=== PATIENT | female | born 1990 | race Caucasian/White ===

== ENCOUNTER 2017-07-24 09:33 | Emergency (ER) | payer SELFPAY ==
[2017-07-24 09:35] VITALS: BP 103/67; PULSE 98; RESP 20; TEMP 36.5; O2SAT 98; BMI 39.4
[2017-07-24] MEDS: Orphenadrine 60 MG/2 ML Ampul IM (10:00)
[2017-07-24] MEDS: Ketorolac 60 MG/2 ML Vial IM (10:01)
--- NOTE | 2017-07-24 10:07 | ED.DCSUM_ITS ---
- ER Visit Summary Date of Service: 07/24/17 Chief Complaint: Back pain History of Present Illness: The patient is a 26 F who presents with back pain that began yesterday. Patient states she has a history of intermittent back pain. Patient states she stood up from a seated position when she felt pain in her low back. Patient states the pain radiates down her left leg. Patient denies any bowel or bladder changes. Patient denies any saddle anesthesia. Patient states her pain is worse with any movement. Patient denies any recent trauma or injury. Physical Examination: Vital signs are stable. Patient is afebrile. Patient is in no acute distress. Musculoskeletal exam reveals tenderness and spasm over the lumbar paraspinal muscles. There is mild midline tenderness. There is no edema or ecchymosis noted. There is no bony crepitance or step-off. Range of motion was limited in all motions of the lumbar spine secondary to pain. Strength is 5/5 bilaterally. There are no sensory deficits noted. Deep tendon reflexes were 2+/4 bilaterally. Emergency Department Course and Treatment: Patient was given injections of Toradol and Norflex here. Patient had minimal relief with this. Patient was given an injection of morphine. Patient felt better after this. Patient was instructed to go home and rest. Patient was instructed to follow-up with her primary care physician in 7-10 days. Patient was given prescriptions for Naprosyn and Flexeril. Patient was given a note for work for tomorrow. Patient understood and was agreeable with the plan. All questions were answered. Disposition: Discharge home Impression: Acute low back pain This note was generated with [employer] dictation software. It may contain incorrect words, spelling, and punctuation that were not noted in review of the chart prior to signing ED Disposition - Plan for ED Patient: Disposition: Home or Assisted Living Chief Complaint: Back Diagnosis: Acute low back pain with right-sided sciatica Instructions: ED Spasm Back No Trauma Prescriptions: Cyclobenzaprine [Flexeril] 10 mg PO TID PRN PRN #20 tab PRN Reason: Muscle Spasm Naproxen [Naprosyn] 500 mg PO BID PRN PRN #20 tab PRN Reason: Pain Referrals: Johnson Wisdom MD [Primary Care Provider] -
[2017-07-24 10:47] VITALS: BP 129/74; PULSE 81; RESP 16; O2SAT 100
[2017-07-24] MEDS: morphine 10 MG/ML Syringe 4 MG SC (11:19)
[2017-07-24 12:14] VITALS: BP 119/61; PULSE 73; RESP 16; O2SAT 98
--- NOTE | 2017-07-24 12:14 | ED.RN ---
THIS NURSE REVIEWED D/C INSTRUCTIONS WITH PT. PT VERBALIZED UNDERSTANDING OF INSTRUCTIONS. PT DENIES FURTHER NEEDS OR QUESTIONS AT THIS TIME.
== END 2017-07-24 12:15 | disposition home or self-care (01) ==
PROVIDERS: Emergency Provider Emergency Medicine; Family Provider Family Medicine; PCP Family Medicine
DX: M54.5 Low back pain (principal)
CPT/HCPCS: 99282

== ENCOUNTER 2017-09-19 12:12 | Emergency (ER) | payer SELFPAY ==
[2017-09-19 12:13] VITALS: BP 146/79; PULSE 86; RESP 15; TEMP 36.7; O2SAT 98; BMI 41.1
--- NOTE | 2017-09-19 12:16 | RAD_ITS ---
STUDY: X-RAY - LEFT FOOT CLINICAL: Female, 27 years old. Puncture wound. TECHNIQUE: 3 view(s) of the foot. COMPARISON: None. FINDINGS: Normal talus, calcaneus, and tarsal bones. Normal visualized subtalar, talonavicular, calcaneocuboid, tarsal and tarsometatarsal articulations. Normal metatarsi. Normal metatarsophalangeal joint of the great toe. Normal tibial and fibular sesamoid bones. Normal interphalangeal joint of the great toe. Normal phalanges of the great toe. Normal second through fifth metatarsophalangeal joints. Normal interphalangeal joints and phalanges of the lesser toes. The soft tissue structures are unremarkable. RAD/Foot min 3 Views IMPRESSION: Normal x-ray examination of the foot. Electronically Signed: Earnest Hilliard MD at 12:43 EDT Tel [phone], Service support ,
--- NOTE | 2017-09-19 14:22 | ED.VIS.GEN ---
History of Present Illness Chief Complaint: Wound Informant: Patient Onset: Days - 2 Context: Gradual Onset Timing: Continuous Quality: sore/throbbing Location: R foot Current Severity: Moderate Maximum Severity: Moderate Worsened by: walking/weight bearing Relieved by: rest/elevation Associated Symptoms: redness, swelling Narrative: Patient states 2 days ago, she was walking in a field and the grass was high, she accidentally stepped on a shard of ceramic piping that was hidden in the grass (patient brought cell phone pictures) that went through her shoe and cut her on the plantar aspect of her right foot. She was seen at the [facility] afterwards, and states that they cleaned it and put some bacitracin on it with a Band-Aid. Now she states it is becoming more painful, swollen, and red, especially on the dorsum of her foot where she did not have an injury. She has no systemic symptoms, but hurts more to walk on now. No fevers. She is not a diabetic. Last tetanus unknown she believes it was more than 10 years ago. Past Medical History - Allergies and Home Meds Allergies/Adverse Reactions: Allergies No Known Allergies Allergy (Verified 09/19/17 12:15) Home Medications: Home Medications Medication Instructions Recorded Clindamycin [Cleocin] 300 mg PO 4X/DAY #80 cap 09/19/17 Levonorgestrel [Mirena] 1 each IY UD 09/19/17 Primary Care Physician: Johnson Wisdom MD [Primary Care Provider] - Past Medical History: None Smoking Status: Never smoker Drugs: None Review of Systems All systems negative except as indicated Musculoskeletal: Reports: Extremity Pain - and swelling with redness right foot Skin: Reports: Wounds - No significant drainage to her knowledge Physical Exam Vital Signs/Narrative: Vital Signs Temp Pulse Resp BP Pulse Ox 09/19/17 12:13 98.1 F 86 15 146/79 H 98 Inital Vital Signs reviewed: Yes General: Well nourished, Well developed, - - Well-appearing in no acute distress. Head: Normocephalic, Atraumatic Extremities: Tenderness - Tenderness with warm erythema on the dorsum of her right forefoot not including the toes. There is a 1 cm or less laceration on the plantar aspect of her right forefoot. There is a piece of gauze on it with a scant amount of serosanguineous drainage, with squeezing this entire area, there is no expressible discharge and the wound is open. Skin: - - See above. Patch of erythema dorsally on the right forefoot, no lymphangitis. None of this extends to the area of the hindfoot or ankle Neurological: Alert, Oriented x3, Cranial nerves II-XII grossly intact, Normal Strength, Normal Sensation Psychological: Normal affect Diagnostic/Tx/Re-eval Impressions Foot X-Ray 09/19/17 12:16 IMPRESSION: Normal x-ray examination of the foot. Electronically Signed: Earnest Hilliard MD at 12:43 EDT Tel [phone], Service support , 09/19/17 12:16 Foot min 3 Views [RAD] Stat Laboratory Results 09/19/17 Range/Units 14:40 WBC 9.7 (4.4-11.0) K/mm3 RBC 4.97 (4.2-5.4) M/mm3 Hgb 14.6 (12.0-15.0) g/dl Hct 44.1 (37-47) % MCV 88.7 (81-99) fL MCH 29.4 (27.0-32.0) pg MCHC 33.1 (32-36) g/gl RDW 12.6 (11.6-14.6) % RDW Differential 40.4 (35.1-43.9) fl Plt Count 241 (150-450) K/mm3 MPV 9.6 (6.2-12.0) fl Immature Gran % (Auto) 0.200 (0.0-0.9) % Neut % (Auto) 63.3 (47-70) % Lymph % (Auto) 27.3 (19-41) % Swisher % (Auto) 6.8 (0-10) % Eos % (Auto) 2.2 (0-5) % Baso % (Auto) 0.2 (0-1) % Absolute Neuts (auto) 6.1 (2.0-7.7) X10^3/uL Absolute Lymphs (auto) 2.64 (0.83-4.51) X10^3/ul Total Counted Not Reportable - Medical Decision Making Concern for infection. Clinically there is no abscess. She is given IV clindamycin, and her tetanus is updated. I think this will be the best antibiotic for this, especially since this area was contaminated with soil. We will soak her foot in shad-cleanse and peroxide. She will be discharged on clindamycin to follow-up closely in the next 2 days for reevaluation, encouraged to return if worsening on antibiotics after 48 hours, or with any significant spreading or fevers before that. ED Disposition - Plan for ED Patient: Disposition: Home or Assisted Living Chief Complaint: Wound Diagnosis: Puncture wound of plantar aspect of right foot with infection Instructions: ED Infec Skin Cellulitis, ED Wound Puncture Foot Prescriptions: Clindamycin [Cleocin] 300 mg PO 4X/DAY #80 cap Referrals: Johnson Wisdom MD [Primary Care Provider] - (2-4 days)
[2017-09-19 14:52] LABS: Absolute Lymphocyte Count 2.64 X10^3/ul (0.83-4.51); Absolute Neutrophil Count 6.1 X10^3/uL (2.0-7.7); Basophil# 0.02 X10^3/uL; Basophil% 0.2 % (0-1); Eosinophil# 0.21 X10^3/uL; Eosinophils% 2.2 % (0-5); Hematocrit 44.1 % (37-47); Hemoglobin 14.6 g/dl (12.0-15.0); Lymphocyte # 2.64 X10^3/ul (4.0); Lymphocyte % 27.3 % (19-41); Mean Corp Hgb Conc 33.1 g/gl (32-36); Mean Corpuscular Hgb 29.4 pg (27.0-32.0); Mean Corpuscular Volume 88.7 fL (81-99); Mean Platelet Vol. 9.6 fl (6.2-12.0); Monocyte# 0.66 X10^3/uL; Monocyte% 6.8 % (0-10); Neutrophil # 6.12 X10^3/uL (2.7-7.7); Neutrophil % 63.3 % (47-70); Platelet Count 241 K/mm3 (150-450); RBC Distribution Width CV 12.6 % (11.6-14.6); RBC Distribution Width SD 40.4 fl (35.1-43.9); Red Blood Count 4.97 M/mm3 (4.2-5.4); White Blood Count 9.7 K/mm3 (4.4-11.0)
[2017-09-19 14:53] LABS: POSITIVE COUNT NO; POSITIVE DIFFERENTIAL NO; POSITIVE MORPHOLOGY NO
[2017-09-19] MEDS: Clindamycin 600 MG/50 ML BAG 100 MG IV (15:16)
[2017-09-19] MEDS: Diphth,Pertuss(Acell),Tet Vac 0.5 ML Vial IM (15:16)
[2017-09-19 16:35] VITALS: BP 119/80; PULSE 91; RESP 14; O2SAT 98
== END 2017-09-19 16:37 | disposition home or self-care (01) ==
PROVIDERS: Emergency Provider Emergency Medicine; Family Provider Family Medicine; PCP Family Medicine
DX: S91.331D Puncture wound without foreign body, right foot, subsequent encounter (principal); L08.9 Local infection of the skin and subcutaneous tissue, unspecified; W22.8XXD Striking against or struck by other objects, subsequent encounter
CPT/HCPCS: 73630; 85025; 90471; 90715; 99283; J7050; A4216

== ENCOUNTER 2019-09-23 09:47 | Emergency (ER) | payer MEDICAID, SELFPAY ==
[2019-09-23 09:47] VITALS: BP 140/96; PULSE 95; RESP 18; TEMP 36.6; O2SAT 98; BMI 41.5
--- NOTE | 2019-09-23 10:07 | CT_ITS ---
STUDY: CT SOFT TISSUE NECK WITH CONTRAST REASON FOR EXAM: Female, 29 years old. PT STATED SWELLING, NUMBNESS TO FACE X 2 DAYS POST ROOT CANAL RADIATION DOSAGE (If Supplied By Facility): CTDIvol = ( 21.14 ) mGy, DLP = ( 570.05 ) mGycm TECHNIQUE: The patient was scanned in a multi-detector CT scanner. High resolution transaxial imaging was performed following intravenous administration of IV 100mL Isovue-300. Sagittal and coronal images were reconstructed. Individualized dose optimization techniques were used for this CT. COMPARISON: None. FINDINGS: Normal bilateral parotid glands. Normal bilateral organizational research consultant spaces. Normal bilateral parapharyngeal spaces. Normal bilateral carotid spaces. Normal bilateral sublingual and submandibular glands and spaces. Normal visualized nasopharynx. Normal retropharyngeal space. Normal perivertebral space. Normal visualized bilateral faucial tonsils. The visualized tongue, tongue base and oropharynx are normal. The visualized cervical lymph nodes (levels I-) are within normal size limits, and maintain normal morphology. There is no demonstrated solid or cystic mass lesion. There is no abnormal contrast enhancement. Normal epiglottis, bilateral vallecula and hypopharynx. The pre-epiglottic and paraglottic adipose spaces are normal. Normal visualized bilateral piriform sinuses, aryepiglottic folds, vocal cords, and arytenoid-cricoid articulations. Normal subglottic trachea. Normal bilateral lobes of the thyroid gland. Normal visualized pulmonary apices. Normal visualized paranasal sinuses. Normal visualized cervical spine. CT/Soft Tissue Neck WITH Contrast IMPRESSION: Normal enhanced CT examination of the soft tissues of the neck. Electronically Signed: Vipul Teague MD at 11:28 EDT Tel , Service support ,
--- NOTE | 2019-09-23 10:10 | ED.DCSUM_ITS ---
- ER Visit Summary Date of Service: 09/23/19 Chief Complaint: Facial pain and swelling History of Present Illness: The patient is a 29 F who presents with dental and facial pain and swelling that is been getting worse over the past 3 days. Patient states she had a root canal done 5 days ago. Patient states she was started on amoxicillin after the root canal. Patient states she was unable to tolerate that which caused her to have some nausea and vomiting. Patient states she has been taking clindamycin since yesterday. Patient states she has taken approximately 6 doses of clindamycin. Patient denies any fevers or chills. Physical Examination: Vital signs are stable. Patient is afebrile. Patient is in no acute distress. Oral mucosa is pink and moist. There is some mild gingival edema over the right upper first and second molar areas. There is no abscess formation. There is no fluctuance. There is no trismus noted. Oropharynx is clear. Airway is patent. Neck is supple. Trachea is midline. There is some mild right anterior cervical lymphadenopathy that is tender to palpation. Heart was regular rate and rhythm. Lungs are clear and equal bilaterally. Abdomen is soft and nontender. Cranial nerves II through XII are intact. There are no focal motor or sensory deficits. Test Results: CBC and comprehensive metabolic profile were within normal limits. Serum hCG was negative. CT scan of the soft tissue neck was obtained. There is no abscess or deep space infection. Emergency Department Course and Treatment: Patient was given a dose of clindamycin IV here. Patient was instructed to continue her clindamycin as prescribed. Patient was instructed to follow-up with her oral surgeon and primary care physician in 5 to 7 days. Patient understood and was agreeable with the plan. All questions were answered. Disposition: Discharge home Impression: Infected dental caries This note was generated with [employer] dictation software. It may contain incorrect words, spelling, and punctuation that were not noted in review of the chart prior to signing ED Disposition - Plan for ED Patient: Disposition: Home or Assisted Living Diagnosis: Infected dental caries Instructions: ED ABSCESS DENTAL Referrals: Johnson Wisdom MD [STAFF PHYSICIAN] - 3-5 Days
[2019-09-23 10:38] LABS: Absolute Lymphocyte Count 2.29 X10^3/uL (0.83-4.51); Absolute Neutrophil Count 3.9 X10^3/uL (2.0-7.7); Basophil# 0.03 X10^3/uL; Basophil% 0.4 % (0-1); Eosinophil# 0.08 X10^3/uL; Eosinophils% 1.2 % (0-5); Hematocrit 45.2 % (37-47); Hemoglobin 15.1 g/dL (12.0-15.0); Lymphocyte # 2.29 X10^3/ul (4.0); Lymphocyte % 33.3 % (19-41); Mean Corp Hgb Conc 33.4 g/dL (32-36); Mean Corpuscular Hgb 29.8 pg (27.0-32.0); Mean Corpuscular Volume 89.2 fL (81-99); Mean Platelet Vol. 9.7 fl (6.2-12.0); Monocyte# 0.51 X10^3/uL; Monocyte% 7.4 % (0-10); NRBC Flagged by Analyzer 0 % (0-5); Neutrophil # 3.93 X10^3/uL (2.7-7.7); Neutrophil % 57.3 % (47-70); Platelet Count 239 K/mm3 (150-450); RBC Distribution Width CV 12.3 % (11.6-14.6); RBC Distribution Width SD 40.1 fl (35.1-43.9); Red Blood Count 5.07 M/mm3 (4.2-5.4); White Blood Count 6.9 K/mm3 (4.4-11.0)
[2019-09-23 10:47] LABS: Internal QC Validated? YES +Cl - CLEAR BKGD; Pregnancy, Serum, hCG Quali. NEGATIVE Negative
[2019-09-23 10:54] LABS: AST(SGOT) 21 U/L (15-37); Alanine Aminotransfer ALT/SGPT 35 U/L (13-56); Albumin, Serum 3.7 g/dL (3.2-5.0); Alkaline Phosphatase 51 U/L (45-117); Anion Gap 6 (5-15); BUN 10 mg/dL (7-18); BUN/Creat Ratio 12.8 RATIO (10-20); Calcium,Total 9.2 mg/dL (8.5-10.1); Chloride 107 mmol/L (98-107); Creatinine, Serum 0.78 mg/dL (0.55-1.02); EST Glomerular Filtration Rate 92 mL/min (>60); Est Glom Filt Rate - Afr Amer 112 mL/min (>60); Globulin 3.6 g/dL (2.2-4.2); Glucose 135 mg/dL (74-106); Protein, Total 7.3 g/dL (6.4-8.2); Sodium Level 140 mmol/L (136-145)
--- NOTE | 2019-09-23 11:16 | ED.RN ---
PT VOMITED DURING THE CT SCAN. THIS NURSE IN TO SPEAK WITH THE PT. FEELING BETTER NOW. NO LONGER NAUSEATED
[2019-09-23 12:42] VITALS: BP 120/75; PULSE 71; RESP 16; O2SAT 98
== END 2019-09-23 12:43 | disposition home or self-care (01) ==
PROVIDERS: Emergency Provider Emergency Medicine; PCP Family Medicine
DX: K04.7 Periapical abscess without sinus (principal); K02.9 Dental caries, unspecified; E66.9 Obesity, unspecified
CPT/HCPCS: 70491; 80053; 84703; 85025; 99282; J7030; Q9967; A4216

== ENCOUNTER → 2019-10-21 16:54 | Outpatient (CLI) | payer MEDICAID, SELFPAY ==
[2019-09-23 09:47] VITALS: BMI 41.5
[2019-10-21 17:36] LABS: CRP 7.69 mg/L (0.0-3.0)
[2019-10-21 17:42] LABS: Erythrocyte Sedimentation Rate 13 mm/hr (0-20)
== END ==
PROVIDERS: PCP Family Medicine; Referring Provider Physician Assistant; Visit Provider Physician Assistant
DX: R10.31 Right lower quadrant pain (principal)
CPT/HCPCS: 85652; 86140

== ENCOUNTER 2022-07-20 14:25 | Emergency (ER) | payer MEDICAID, SELFPAY ==
[2022-07-20 14:26] VITALS: BP 147/83; PULSE 95; RESP 18; TEMP 36; O2SAT 100; BMI 38.6
[2022-07-20 14:36] VITALS: BP 119/90; PULSE 96; RESP 16; O2SAT 100
--- NOTE | 2022-07-20 14:57 | EDS_ITS ---
HPI History of Present Illness Chief Complaint: Abd Pain Informant: patient Narrative Narrative: Patient has been having epigastric and left upper quadrant area abdominal pain for the last week. Its waxing and waning somewhat but trending toward worse. She is now to the point where eating hurts a lot so she is not eating as much. She does have nausea but is is not sure if it is from the pain or just because she is nauseated. She has not vomited. No diarrhea. She does have a history of GERD but normally has burning in her chest with that and she has none of this now. She has never had an EGD. She is on omeprazole and has been taking it prior to and during this. She also has a history of diabetes. She also has a history of neuroendocrine tumor had surgery including hysterectomy and chemotherapy. Last chemo was about a year and a half ago. She does still have a Mediport in. No changes in this. She still has her gallbladder but is not having right upper quadrant pain. No urinary symptoms. [facility] Medical History (Updated 07/20/22 @ 16:[address] Glenn Lambert MD) Diabetes Large cell neuroendocrine carcinoma Home Medications blood-glucose sensor (Dexcom G6 Sensor device) 07/20/22 [History Last Taken Unknown] blood-glucose transmitter (Dexcom G6 Transmitter device) 07/20/22 [History Last Taken Unknown] cyclobenzaprine 10 mg tablet mg 07/20/22 [History Last Taken Unknown] dicyclomine 10 mg capsule 20 mg PO TIDAC #20 CAPSULES 07/20/22 [Rx Last Taken Unknown] flash glucose sensor (FreeStyle Hodan 14 Day Sensor kit) 07/20/22 [History Last Taken Unknown] insulin glargine 100 unit/mL (3 mL) subcutaneous pen (Lantus Solostar U-100 Insulin) unit subcut 07/20/22 [History Last Taken Unknown] metformin 500 mg tablet,extended release 24 hr mg PO 07/20/22 [History Last Taken Unknown] metoprolol tartrate 25 mg tablet mg 07/20/22 [History Last Taken Unknown] omeprazole 40 mg capsule,delayed release mg 07/20/22 [History Last Taken Unknown] ondansetron 4 mg disintegrating tablet 4 mg PO Q8H PRN PRN Nausea #10 tabs 07/20/22 [Rx Last Taken Unknown] sertraline 50 mg tablet mg 07/20/22 [History Last Taken Unknown] sucralfate 1 gram tablet (Carafate) 1 g PO TID #30 tabs 07/20/22 [Rx Last Taken Unknown] Allergy/AdvReac Type Severity Reaction Status Date / Time amoxicillin AdvReac Nausea/Vom/ Verified 07/20/22 14:28 Diarrhea Surgical History (Updated 07/20/22 @ 14:32 by Erika Wisdom) H/O: hysterectomy Social History Smoking Status: Never smoker ROS ROS ED Constitutional Constitutional ED: Denies chills, fever(s) or subjective ENT ENT ED: Denies rhinorrhea or sore throat Cardiovascular Cardiovascular: Denies chest pain or palpitations Respiratory/Chest Respiratory/Chest: Denies cough or dyspnea Gastrointestinal Gastrointestinal: Reports abdominal pain and nausea; Denies constipation, diarr hea, melena or vomiting Genitourinary Genitourinary ED: Denies dysuria, hematuria or urinary frequency Musculoskeletal Musculoskeletal: Denies back pain Integumentary Denies rash Neurologic Neurologic: Denies headache(s) Endocrine Endocrinology: Denies polydipsia or polyuria Hematologic/Lymphatic Hematologic/Lymphatic: Denies easy bleeding or easy bruising Allergic/Immunologic Allergic/Immunologic ED: Denies urticaria EXAM Physical Exam Narrative Exam Narrative: She is awake alert. No acute distress. She looks nontoxic. HEENT shows moist mucous membranes. No trauma. Neck shows no JVD or pain with motion Lungs are clear bilaterally. Saturations are normal at 100% on room air showing no hypoxia. Heart is regular. Rate is about 90. Note her med port in the left upper chest looks intact and not infected. Abdomen is soft. She does have some very mild epigastric and left upper quadrant tenderness but no rebound guarding or mass. No right upper quadrant tenderness. Bowel sounds are also normal. No distention. shows no suprapubic or CVA tenderness. No posterior rashes or vesicles. Skin is normal. Extremities show no edema. Const Vital Signs: 07/20/22 14:26 07/20/22 14:36 Temperature 96.8 F L Temperature Source Temporal Pulse Rate 95 96 Respiratory Rate 18 16 Blood Pressure 147/83 H 119/90 H Blood Pressure Mean 104 99 Pulse Ox 100 100 Oxygen Delivery Method Room Air Room Air MDM MDM MDM Narrative Medical decision making narrative: My independent interpretation of the CT did not show any acute process. I did not see any indication of perforation or free air around the stomach. Gallbladder looked to be normal. No sign of ileus or obstruction. No sign of kidney final reading is negative CT of the abdomen pelvis with IV contrast. Patient CBC and occluding white count hemoglobin and normal. Electrolytes are normal other than nonspecific elevation of chloride at 108. Glucose is well controlled at 125. Liver function test and lipase are normal. The patient has normal labs and CT. My suspicion is that this is most likely still gastric. This may be development of an ulcer as it is just a constant ache. It is not at all in the chest. She is on omeprazole and was told to continue this. I will write for some Carafate. We will write for Zofran also because she has some mild intermittent nausea. I will also write for Bentyl to see if that will give some benefit also to her. She is comfortable with this plan. We discussed follow-up with her primary physician and some possible long- term follow-up with gastroenterology. Lab Data Labs: Laboratory Results - last 24 hr 07/20/22 07/20/22 15:34 15:34 WBC 6.8 RBC 4.81 Hgb 14.3 Hct 43.3 MCV 90.0 MCH 29.7 MCHC 33.0 RDW Std Deviation 39.3 RDW Coeff of Blanquita 11.9 Plt Count 210 MPV 9.3 Immature Gran % (Auto) 0.300 Neut % (Auto) 58.2 Lymph % (Auto) 31.5 Tift % (Auto) 8.1 Eos % (Auto) 1.5 Baso % (Auto) 0.4 Absolute Neuts (auto) 4.0 Absolute Lymphs (auto) 2.14 Nucleated RBC % 0 Sodium 139 Potassium 3.9 Chloride 108 H Carbon Dioxide 25.0 Anion Gap 6 BUN 18 Creatinine 0.79 Estim Creat Clear Calc 89.10 Est GFR (MDRD) Af Amer 109 Est GFR (MDRD) Non-Af 90 BUN/Creatinine Ratio 22.9 H Glucose 125 H Calcium 9.1 Total Bilirubin 0.40 AST 13 L ALT 23 Alkaline Phosphatase 50 Total Protein 7.3 Albumin 3.5 Globulin 3.8 Albumin/Globulin Ratio 0.9 Lipase 179 Radiography Diagnostic Testing: Clinical Impression(s) from Imaging Studies Abdomen/Pelvis CT 07/20/22 15:50 IMPRESSION: Negative CT of the abdomen and pelvis with intravenous contrast. Electronically Signed: Chacho Barr MD at 16:13 EDT , Discharge Plan Triage Chief Complaint: Abd Pain ED Provider: Glenn Lambert Dx/Rx/DC Orders Clinical Impression: Acute epigastric pain, Peptic ulcer disease Prescriptions: New ondansetron [ondansetron] 4 mg tablet,disintegrating 4 mg PO Q8H PRN PRN (Reason: Nausea) Qty: 10 0RF dicyclomine 10 mg capsule 20 mg PO TIDAC Qty: 20 0RF sucralfate [Carafate] 1 gram tablet 1 g PO TID Qty: 30 0RF No Action cyclobenzaprine 10 mg tablet Label Comments: TAKE 1 TABLET BY MOUTH THREE TIMES DAILY NEEDED FOR MUSCLE SPASM. omeprazole 40 mg capsule,delayed release(DR/EC) Label Comments: TAKE 1 CAPSULE BY MOUTH ONCE DAILY metformin 500 mg tablet extended release 24 hr PO Label Comments: TAKE 2 TABLETS BY MOUTH TWICE A DAY WITH MEALS sertraline 50 mg tablet Label Comments: TAKE 1 AND 1/2 TABLETS BY MOUTH ONCE DAILY metoprolol tartrate 25 mg tablet Label Comments: TAKE 1 TABLET BY MOUTH EVERY DAY insulin glargine [Lantus Solostar U-100 Insulin] 100 unit/mL (3 mL) insulin pen SUBCUT Label Comments: INJECT 20 UNITS SUBCUTANEOUSLY DAILY AT BEDTIME. (DME) Dexcom G6 Sensor Device MISCELLANEOUS Label Comments: USE TO CHECK BLOOD SUGARS FASTING, BEFORE AND AFTER MEALS, DX E11.9, INSULIN: YES (DME) Dexcom G6 Transmitter Device MISCELLANEOUS Label Comments: APPLY NEW ONE EVERY 2 WEEKS: USE TO CHECK BLOOD SUGARS FASTING, BEFORE AND AFTER MEALS (DME) FreeStyle Hodan 14 Day Sensor Kit MISCELLANEOUS Label Comments: USE DIRECTED Primary Care Provider: Amauri Valdes Referrals: Amauri Valdes MD [Primary Care Provider] - 3-5 Days Friend,Milton, DO [Med Staff - Active Staff] - As soon as possible Disposition Disposition: Home, Self Care
[2022-07-20] MEDS: Morphine 4 MG/ML Syringe IV (15:01)
[2022-07-20] MEDS: Ondansetron 4 MG/2 ML Vial IV (15:02)
[2022-07-20] MEDS: 0.9% Normal Saline 1,000 ML 1000 ML IV (15:02)
[2022-07-20 15:43] LABS: Absolute Lymphocyte Count 2.14 X10^3/uL (0.83-4.51); Basophil# 0.03 X10^3/uL; Basophil% 0.4 % (0-1); Eosinophils% 1.5 % (0-5); Hematocrit 43.3 % (37-47); Hemoglobin 14.3 g/dL (12.0-15.0); Lymphocyte # 2.14 X10^3/ul (0.83-4.51); Lymphocyte % 31.5 % (19-41); Mean Corpuscular Hgb 29.7 pg (27.0-32.0); Mean Platelet Vol. 9.3 fl (6.2-12.0); Monocyte# 0.55 X10^3/uL; Monocyte% 8.1 % (0-10); NRBC Flagged by Analyzer 0 % (0-5); Neutrophil # 3.95 X10^3/uL (2.7-7.7); Neutrophil % 58.2 % (47-70); Platelet Count 210 K/mm3 (150-450); RBC Distribution Width CV 11.9 % (11.6-14.6); RBC Distribution Width SD 39.3 fl (35.1-43.9); Red Blood Count 4.81 M/mm3 (4.2-5.4); White Blood Count 6.8 K/mm3 (4.4-11.0)
--- NOTE | 2022-07-20 15:50 | CT_ITS ---
EXAM: CT ABDOMEN AND PELVIS WITH INTRAVENOUS CONTRAST CLINICAL INDICATION: pain TECHNIQUE: Helically acquired images were obtained of the abdomen and pelvis with intravenous contrast. This CT exam was performed using one or more of the following dose reduction techniques: automated exposure control, adjustment of the mA and/or kV according to patient size, and/or use of iterative reconstruction technique. This report was created using [employer] report generation technology. CONTRAST: IV 100mL Isovue-300 COMPARISON: 02/16/2016 FINDINGS: LOWER THORAX: Unremarkable. Lung bases are clear. No cardiomegaly. No significant pericardial effusion. ABDOMEN: LIVER: Unremarkable. Homogeneous. No focal mass. GALLBLADDER AND BILE DUCTS: Unremarkable. No calcified gallstones. No gallbladder distention or wall edema. No intra- or extrahepatic biliary ductal dilation. PANCREAS: Unremarkable. No focal cystic or solid mass. SPLEEN: Unremarkable. Normal size without focal cystic or solid mass. ADRENALS: Unremarkable. No nodules. KIDNEYS AND URETERS: Unremarkable. Normal renal size and position. No hydronephrosis. STOMACH AND BOWEL: Unremarkable. No stomach or bowel distention. No focal inflammatory change. PELVIS: APPENDIX: No evidence of acute appendicitis. BLADDER: Unremarkable. REPRODUCTIVE: Unremarkable as visualized. No mass. ABDOMEN and PELVIS: INTRAPERITONEAL SPACE: Unremarkable. No ascites or other fluid collection. No free air. BONES/JOINTS: Unremarkable. No suspicious lytic or blastic abnormality. SOFT TISSUES: Unremarkable. No discrete abdominal or pelvic wall hernia. VASCULATURE: Unremarkable. Abdominal aorta is non-dilated. LYMPH NODES: Unremarkable. No enlarged lymph nodes. CT/Abdomen/Pelvis W IV Cont ONLY IMPRESSION: Negative CT of the abdomen and pelvis with intravenous contrast. Electronically Signed: Chacho Barr MD at 16:13 EDT ,
[2022-07-20 16:01] LABS: ALB/GLOB Ratio 0.9 RATIO (0.9-2.4); AST(SGOT) 13 U/L (15-37); Alanine Aminotransfer ALT/SGPT 23 U/L (13-56); Albumin, Serum 3.5 g/dL (3.2-5.0); Alkaline Phosphatase 50 U/L (45-117); Anion Gap 6 (5-15); BUN 18 mg/dL (7-18); BUN/Creat Ratio 22.9 RATIO (10-20); Calcium,Total 9.1 mg/dL (8.5-10.1); Chloride 108 mmol/L (98-107); Creatinine, Serum 0.79 mg/dL (0.55-1.02); EST Glomerular Filtration Rate 90 mL/min (>60); Est Glom Filt Rate - Afr Amer 109 mL/min (>60); Globulin 3.8 g/dL (2.2-4.2); Glucose 125 mg/dL (74-106); Lipase 179 U/L (73-393); Potassium 3.9 mmol/L (3.5-5.1); Protein, Total 7.3 g/dL (6.4-8.2); Sodium Level 139 mmol/L (136-145)
[2022-07-20 16:48] VITALS: BP 102/63; PULSE 90; RESP 16; O2SAT 98
== END 2022-07-20 16:57 | disposition home or self-care (01) ==
PROVIDERS: Emergency Provider Emergency Medicine; PCP Family Medicine; Visit Provider Emergency Medicine
DX: K27.9 Peptic ulcer, site unspecified, unspecified as acute or chronic, without hemorrhage or perforation (principal); E11.9 Type 2 diabetes mellitus without complications; R10.13 Epigastric pain; Z92.21 Personal history of antineoplastic chemotherapy; R11.0 Nausea; R10.12 Left upper quadrant pain
CPT/HCPCS: 74177; 80053; 83690; 85025; 96361; 96374; 96375; 99282; J7030; Q9967; A4216; J2405

== ENCOUNTER 2024-02-21 08:00 | Emergency (ER) | payer MEDICARE, MEDICAID, SELFPAY ==
[2024-02-21 08:02] VITALS: BP 116/67; PULSE 74; RESP 18; TEMP 36.4; O2SAT 100; BMI 39.4
--- NOTE | 2024-02-21 09:36 | EDS_ITS ---
HPI HPI - GI History of Present Illness Chief Complaint: Abd Pain Informant: patient Abdominal Pain/Flank Pain Onset: Yesterday Context: Sudden Onset Timing: Continuous Quality: Sharp Location: RLQ and LLQ Worsened by: Movement (Bending forward) Relieved by: Nothing Nausea/Vomiting/Emesis GI Symptom: Positive for Nausea; Negative for Vomiting Diarrhea/Melena/Hematochezia GI Symptom: Negative for Diarrhea, Melena or Hematochezia Associated Symptoms Associated Symptoms: Negative for Dysuria, Frequency or Hematuria Narrative Narrative: Patient presents with lower abdominal pain that began yesterday. Patient describes the as sharp. Patient states it is worse on the left. Patient states it has been constant. Patient states it began rather suddenly. Patient states it is worse whenever she bends forward. Patient admits to some nausea but denies any vomiting. Patient denies any diarrhea, melena, or hematochezia. Patient denies any dysuria, frequency, or hematuria. Patient states nothing seems to help her pain. Patient denies any fevers or chills. Patient states her pain does radiate into her back. [facility] Medical History Diabetes Large cell neuroendocrine carcinoma Home Medications ?Medication ?Instructions ?Recorded ?Last Taken ?Type blood-glucose sensor (Dexcom G6 07/20/22 Unknown History Sensor device) blood-glucose transmitter (Dexcom 07/20/22 Unknown History G6 Transmitter device) cyclobenzaprine 10 mg tablet mg 07/20/22 Unknown History dicyclomine 10 mg capsule 20 mg (2 x 10 mg) PO TIDAC #20 07/20/22 Unknown Rx CAPSULES flash glucose sensor (FreeStyle 07/20/22 Unknown History Hodan 14 Day Sensor kit) insulin glargine 100 unit/mL (3 unit subcut 07/20/22 Unknown History mL) subcutaneous pen (Lantus Solostar U-100 Insulin) metformin 500 mg tablet,extended mg PO 07/20/22 Unknown History release 24 hr metoprolol tartrate 25 mg tablet mg 07/20/22 Unknown History omeprazole 40 mg capsule,delayed mg 07/20/22 Unknown History release ondansetron 4 mg disintegrating 4 mg PO Q8H PRN PRN Nausea #10 tabs 07/20/22 Unknown Rx tablet sertraline 50 mg tablet mg 07/20/22 Unknown History sucralfate 1 gram tablet (Carafate) 1 g PO TID #30 tabs 07/20/22 Unknown Rx Allergy/AdvReac Type Severity Reaction Status Date / Time amoxicillin AdvReac Nausea/Vom/ Verified 02/21/24 08:02 Diarrhea Surgical History H/O: hysterectomy Social History Smoking Status: Never smoker ROS ROS ED Constitutional Constitutional ED: Denies chills or fever(s) Eyes Eyes: Denies blurry vision or change in vision ENT ENT ED: Denies rhinorrhea or sore throat Cardiovascular Cardiovascular: Denies chest pain or palpitations Respiratory/Chest Respiratory/Chest: Denies cough or dyspnea Gastrointestinal Gastrointestinal: Reports abdominal pain and nausea; Denies constipation, diarrhea, melena or vomiting Genitourinary Genitourinary ED: Denies dysuria or hematuria Musculoskeletal Musculoskeletal: Reports back pain; Denies neck pain Integumentary Denies abscess or rash Neurologic Neurologic: Denies headache(s) or weakness Allergic/Immunologic Allergic/Immunologic ED: Denies mouth swelling or urticaria EXAM Physical Exam Const Vital Signs: 02/21/24 08:02 02/21/24 10:13 02/21/24 12:17 Temperature 97.6 F L 98.2 F Temperature Source Oral Oral Pulse Rate 74 72 79 Respiratory Rate 18 15 14 Blood Pressure 116/67 128/76 H 118/78 Blood Pressure Mean 83 93 91 Pulse Ox 100 98 98 Oxygen Delivery Method Room Air Room Air Room Air Positive well nourished and well developed General Appearance ED: well developed and NAD HEENT Reports moist mucous membranes Neck supple and no JVD Resp normal respiratory effort and clear to auscultation bilaterally Cardio regular rate and regular rhythm GI non-distended Palpation: soft and tender LLQ, RLQ and suprapubic; Negative for guarding or rebound tenderness present Neuro CN's II-XII intact bilaterally, moves all extremities and no sensory deficits noted Sensorium / Orientation: alert Motor Exam: strength 5/5 throughout Psych mental status grossly normal MDM MDM MDM Narrative Medical decision making narrative: Differential diagnosis includes urinary tract infection, diverticulitis, diverticulosis, appendicitis, pancreatitis, ureteral calculus, colitis, and perforation. CT scan of the abdomen pelvis will be obtained to assess for diverticulitis, appendicitis, perforation, colitis, and ureteral calculus. CBC will be obtained to assess for leukocytosis and anemia. Comprehensive metabolic profile will be obtained to assess for hepatic function, renal function, and electrolyte abnormality. Lipase will be obtained to assess for pancreatitis. Urinalysis will be obtained to assess for urinary tract infection and hematuria. Lab Data Attestation: I reviewed the patient's lab results. Lab results narrative: CBC was reviewed and was within normal limits. Comprehensive metabolic profile was reviewed and was within normal limits. Lipase was reviewed and was normal at 66. Urinalysis was reviewed. Leukocyte esterase was 25 with 5-10 white blood cells. There is 0 bacteria noted. Labs: Laboratory Results - last 24 hr 02/21/24 02/21/24 10:00 10:01 WBC 8.0 RBC 5.01 Hgb 14.9 Hct 44.5 MCV 88.8 MCH 29.7 MCHC 33.5 RDW Std Deviation 39.6 RDW Coeff of [place]an[place] 12.2 Plt Count 241 MPV 9.8 Immature Gran % (Auto) 0.800 Neut % (Auto) 54.6 Lymph % (Auto) 35.8 [place] % (Auto) 7.2 Eos % (Auto) 1.1 Baso % (Auto) 0.5 Absolute Neuts (auto) 4.4 Absolute Lymphs (auto) 2.85 Nucleated RBC % 0 Sodium 139 Potassium 4.3 Chloride 107 Carbon Dioxide 27.0 Anion Gap 5 BUN 11 Creatinine 0.79 Estim Creat Clear Calc 119.20 Est GFR (MDRD) Af Amer 107 Est GFR (MDRD) Non-Af 88 BUN/Creatinine Ratio 13.9 Glucose 148 H Calcium 9.2 Total Bilirubin 0.50 AST 33 ALT 26 Alkaline Phosphatase 57 Total Protein 7.8 Albumin 3.5 Globulin 4.3 H Albumin/Globulin Ratio 0.8 L Lipase 66 Urine Color Yellow Urine Clarity Clear Urine pH 7.0 Ur Specific [place] 1.010 Urine Protein 15 H Urine Glucose (UA) Normal Urine Ketones Negative Urine Occult Blood Negative Urine Nitrite Negative Urine Bilirubin Negative Urine Urobilinogen Normal Ur Leukocyte Esterase 25 H Urine RBC 0 SEEN Urine WBC 5-10 SEEN Ur Squamous Epith Cells 0-5 SEEN Urine Bacteria 0 SEEN Urine Mucus 0 SEEN Radiography Diagnostic Testing: Clinical Impression(s) from Imaging Studies Abdomen/Pelvis CT 02/21/24 10:35 IMPRESSION: No acute abnormality identified. Electronically Signed: Fadumo Hernandez MD at 11:05 EDT , CT scan of the abdomen pelvis was obtained. There is no evidence of appendicitis. There is no bowel obstruction or perforation. There is no free air or free fluid. This was interpreted by the radiologist and was also independently reviewed by myself. Treatment and Re-Evaluation :: Patient was given IV fluids and Zofran. Patient declined morphine. Patient is given a dose of Toradol instead. Patient is feeling better on reevaluation. Patient was advised of her findings. Patient was instructed to start with a bland diet and advance as tolerated. Patient was instructed to follow-up with her primary care physician in 5 to 7 days. Patient understood and was agreeable with plan. All questions were answered. Discharge Plan Triage Chief Complaint: Abd Pain ED Provider: Johnson Welch Dx/Rx/DC Orders Clinical Impression: Abdominal pain, Diabetes mellitus Instructions: ED Abdominal Pain Unkn Cause Fem Prescriptions: No Action cyclobenzaprine 10 mg tablet Patient Comments: TAKE 1 TABLET BY MOUTH THREE TIMES DAILY NEEDED FOR MUSCLE SPASM. omeprazole 40 mg capsule,delayed release(DR/EC) Patient Comments: TAKE 1 CAPSULE BY MOUTH ONCE DAILY metformin 500 mg tablet extended release 24 hr PO Patient Comments: TAKE 2 TABLETS BY MOUTH TWICE A DAY WITH MEALS sertraline 50 mg tablet Patient Comments: TAKE 1 AND 1/2 TABLETS BY MOUTH ONCE DAILY metoprolol tartrate 25 mg tablet Patient Comments: TAKE 1 TABLET BY MOUTH EVERY DAY insulin glargine [Lantus Solostar U-100 Insulin] 100 unit/mL (3 mL) insulin pen SUBCUT Patient Comments: INJECT 20 UNITS SUBCUTANEOUSLY DAILY AT BEDTIME. (DME) Dexcom G6 Sensor Device MISCELLANEOUS Patient Comments: USE TO CHECK BLOOD SUGARS FASTING, BEFORE AND AFTER MEALS, DX E11.9, INSULIN: YES (DME) Dexcom G6 Transmitter Device MISCELLANEOUS Patient Comments: APPLY NEW ONE EVERY 2 WEEKS: USE TO CHECK BLOOD SUGARS FASTING, BEFORE AND AFTER MEALS (DME) FreeStyle Hodan 14 Day Sensor Kit MISCELLANEOUS Patient Comments: USE DIRECTED ondansetron [ondansetron] 4 mg tablet,disintegrating 4 mg PO Q8H PRN PRN (Reason: Nausea) Qty: 10 0RF dicyclomine 10 mg capsule 20 mg PO TIDAC Qty: 20 0RF sucralfate [Carafate] 1 gram tablet 1 g PO TID Qty: 30 0RF Primary Care Provider: Amauri Valdes Referrals: Amauri Valdes MD [Primary Care Provider] - 5-7 Days Print Language: Hungarian Disposition Disposition: Home, Self Care
[2024-02-21 10:07] LABS: Bacteria 0 SEEN /hpf (None Seen); Mucous, Urine 0 SEEN /hpf (<or=2+); Red Blood Cells-Urine 0 SEEN /hpf (0-5)
[2024-02-21 10:09] LABS: Color, Urine Yellow (Yellow); Glucose, Dipstick Normal (Normal); Ketone-Dipstick Negative (Negative); Leukocyte Esterase-Dipstick 25 /ul (Negative); Nitrite-Dipstick Negative (Negative); Occult Blood-Urine Negative /ul (Negative); Protein-Dipstick 15 mg/dl (Negative); Urine Bilirubin Dipstick Negative (Negative); Urine Clarity Clear (Clear); Urine Urobilinogen Normal (Normal)
[2024-02-21] MEDS: Ondansetron 4 MG/2 ML Vial IV (10:10)
[2024-02-21 10:11] LABS: Absolute Lymphocyte Count 2.85 X10^3/uL (0.83-4.51); Absolute Neutrophil Count 4.4 X10^3/uL (2.0-7.7); Basophil# 0.04 X10^3/uL; Basophil% 0.5 % (0-1); Eosinophil# 0.09 X10^3/uL; Eosinophils% 1.1 % (0-5); Hematocrit 44.5 % (37-47); Hemoglobin 14.9 g/dL (12.0-15.0); Lymphocyte # 2.85 X10^3/ul (0.83-4.51); Lymphocyte % 35.8 % (19-41); Mean Corp Hgb Conc 33.5 g/dL (32-36); Mean Corpuscular Hgb 29.7 pg (27.0-32.0); Mean Corpuscular Volume 88.8 fL (81-99); Mean Platelet Vol. 9.8 fl (6.2-12.0); Monocyte# 0.57 X10^3/uL; Monocyte% 7.2 % (0-10); NRBC Flagged by Analyzer 0 % (0-5); Neutrophil # 4.35 X10^3/uL (2.7-7.7); Neutrophil % 54.6 % (47-70); Platelet Count 241 K/mm3 (150-450); RBC Distribution Width CV 12.2 % (11.6-14.6); RBC Distribution Width SD 39.6 fl (35.1-43.9); Red Blood Count 5.01 M/mm3 (4.2-5.4)
[2024-02-21 10:13] VITALS: BP 128/76; PULSE 72; RESP 15; O2SAT 98
[2024-02-21 10:19] LABS: Squamous Epithelial Cells - UA 0-5 SEEN /hpf (5-10); White Blood Cells 5-10 SEEN /hpf (0-5)
[2024-02-21 10:30] LABS: ALB/GLOB Ratio 0.8 RATIO (0.9-2.4); AST(SGOT) 33 U/L (15-37); Alanine Aminotransfer ALT/SGPT 26 U/L (13-56); Albumin, Serum 3.5 g/dL (3.2-5.0); Alkaline Phosphatase 57 U/L (45-117); Anion Gap 5 (5-15); BUN 11 mg/dL (7-18); BUN/Creat Ratio 13.9 RATIO (10-20); Calcium,Total 9.2 mg/dL (8.5-10.1); Chloride 107 mmol/L (98-107); Creatinine, Serum 0.79 mg/dL (0.55-1.02); EST Glomerular Filtration Rate 88 mL/min (>60); Est Glom Filt Rate - Afr Amer 107 mL/min (>60); Globulin 4.3 g/dL (2.2-4.2); Glucose 148 mg/dL (74-106); Lipase 66 U/L (13-75); Potassium 4.3 mmol/L (3.5-5.1); Protein, Total 7.8 g/dL (6.4-8.2); Sodium Level 139 mmol/L (136-145)
--- NOTE | 2024-02-21 10:35 | CT_ITS ---
HISTORY: Abdominal pain. TECHNIQUE: Helically acquired images were obtained of the abdomen and pelvis after the intravenous administration of 100 mL Isovue-370. A radiation dose optimization technique was used for this scan. 446 images. COMPARISON: 07/20/2022. FINDINGS: LOWER CHEST: Lung bases clear. BOWEL: Bowel including appendix nondilated. No focal pericolonic inflammatory change observed. PERITONEUM: No significant ascites. LIVER: No enhancing mass. Stable 3 mm hypodensity in the right lobe. GALLBLADDER/BILIARY TREE: Gallbladder present. SPLEEN/PANCREAS: Homogeneous and nonenlarged. ADRENAL GLANDS/KIDNEYS: Unremarkable. VESSELS: No abdominal aortic aneurysm. PELVIC ORGANS: Absent uterus. 2.2 cm involuting cyst in the left ovary. BONES: Intact. CT/Abdomen/Pelvis W IV Cont ONLY IMPRESSION: No acute abnormality identified. Electronically Signed: Fadumo Hernandez MD at 11:05 EDT ,
[2024-02-21] MEDS: Ketorolac 30 MG/ML Syringe IV (12:10)
[2024-02-21 12:17] VITALS: BP 118/78; PULSE 79; RESP 14; TEMP 36.8; O2SAT 98
== END 2024-02-21 12:54 | disposition home or self-care (01) ==
PROVIDERS: Emergency Provider Emergency Medicine; PCP Family Medicine; Visit Provider Emergency Medicine
DX: R10.30 Lower abdominal pain, unspecified (principal); E11.9 Type 2 diabetes mellitus without complications; Z79.4 Long term (current) use of insulin; R11.2 Nausea with vomiting, unspecified; Z79.84 Long term (current) use of oral hypoglycemic drugs; Z90.710 Acquired absence of both cervix and uterus
CPT/HCPCS: 74177; 80053; 81001; 83690; 85025; 99282; Q9967; A4216; J2405

== ENCOUNTER 2024-12-04 20:57 | Emergency (ER) | payer BC, SELFPAY ==
[2024-12-04 20:59] VITALS: BP 138/94; PULSE 102; RESP 20; TEMP 36.1; O2SAT 100; BMI 41.5
[2024-12-04 21:44] VITALS: BP 123/82; PULSE 74; RESP 18; TEMP 36.1; O2SAT 94
--- NOTE | 2024-12-04 21:44 | EDS_ITS ---
HPI History of Present Illness Chief Complaint: Ear Problem Narrative Narrative: 34-year-old female past medical history of diabetes presents with 3 weeks of right ear pain. She states that she has been dealing with ear pain for the last 3 weeks. She is employed as a veterinary tech and states whenever she inserts her stethoscope, she has a lot of right ear pain. She states additionally that she was seen by urgent care. She has gone through a course of oral antibiotics and eardrops as well. Today was the first day where she felt like she was losing hearing. States that sometimes she will have a dull achy pain that somewhat constant and for few minutes it will become sharp and stabbing. No fevers or chills, no exacerbating or alleviating factors. [facility] Medical History Diabetes Large cell neuroendocrine carcinoma Home Medications ?Medication ?Instructions ?Recorded ?Last Taken ?Type blood-glucose sensor (Dexcom G6 07/20/22 Unknown Hist ory Sensor device) blood-glucose transmitter (Dexcom 07/20/22 Unknown [place] G6 Transmitter device) cyclobenzaprine 10 mg tablet mg 07/20/22 Unknown Histo ry dicyclomine 10 mg capsule 20 mg (2 x 10 mg) PO TIDAC # 20 07/20/22 Unknown Rx CAPSULES flash glucose sensor (FreeStyle 07/20/22 Unknown Hist ory Hodan 14 Day Sensor kit) insulin glargine 100 unit/mL (3 unit subcut 07/20/22 U nknown History mL) subcutaneous pen (Lantus Solostar U-100 Insulin) metformin 500 mg tablet,extended mg PO 07/20/22 Unknow n History release 24 hr metoprolol tartrate 25 mg tablet mg 07/20/22 Unknown H istory omeprazole 40 mg capsule,delayed mg 07/20/22 Unknown H istory release ondansetron 4 mg disintegrating 4 mg PO Q8H PRN PRN Na usea #10 tabs 07/20/22 Unknown Rx tablet sertraline 50 mg tablet mg 07/20/22 Unknown History sucralfate 1 gram tablet (Carafate) 1 g PO TID #30 tab s 07/20/22 Unknown Rx ciprofloxacin 0.2 %-hydrocortisone 3 drp RIGHT EAR BID 7 days #10 mL 12/04/24 Unknown Rx 1 % ear drops,suspension (Cipro HC) oxycodone 5 mg tablet 5 mg PO Q6H PRN pain 3 days #12 12/04/24 Unknown Rx tabs Allergy/AdvReac Type Severity Reaction Status Date / Time metformin AdvReac Mild Nausea Verified 12/04/24 20:59 amoxicillin AdvReac Nausea/Vom/ Verified 12/04/24 20:59 Diarrhea Family History no significant family his Surgical History H/O: hysterectomy Social History Smoking Status: Never smoker ROS ROS ED ROS Narrative Review of systems positive for right ear pain, loss of hearing starting today, described as sharp and stabbing and dull and achy. No fevers or chills. Has already been through oral and topical antibiotics. EXAM Physical Exam Narrative Exam Narrative: Afebrile. Vital signs noted. Nontoxic-appearing. Cardiovascular examination reveals mild tachycardia. Lungs clear to auscultation bilaterally. Inspection of the right ear shows no evidence of mastoid tenderness or erythema. She does have mild pain with movement of the tragus. She has multiple piercings of the auricle and of the tragus as well. TM appears clear without erythema. There may be mild swelling of the canal, but not enough to hold a ear wick. Neck soft and supple. Const Vital Signs: 12/04/24 20:59 Temperature 97 F L Temperature Source Temporal Pulse Rate 102 H Respiratory Rate 20 H Blood Pressure 138/94 H Blood Pressure Mean 108 Pulse Ox 100 Oxygen Delivery Method Room Air MDM MDM MDM Narrative Medical decision making narrative: The differential diagnosis includes but not limited to continued otitis externa versus nonspecific otalgia versus otitis media versus malignant otitis externa. Given her physical symptoms of pain with movement of the auricle and tragus, I wrote her prescription for Ciprodex drops, and she was given an oral analgesic in the form of oxycodone here. Prescription written for 3 days. I strongly encouraged her to follow-up with otolaryngology in which she was referred to ENT on-call. I feel she can be discharged safely home. I do not feel she requires antibiotics, nor do I feel that she requires any imaging. Patient is agreeable to the plan. Disposition is discharged home in stable condition. History & Record Review Discussion w/independent historian: Patient Additional record(s) reviewed:: Prior ED visit (Noncontributory to current chief complaint) Discharge Plan Triage Chief Complaint: Ear Problem ED Provider: Anand Gray Dx/Rx/DC Orders Clinical Impression: Otitis externa, Otalgia of right ear Instructions: ED External Ear Infection (Adult) Prescriptions: New Cipro HC 0.2-1 % drops,suspension 3 drp RIGHT EAR BID 7 Days Qty: 10 0RF oxycodone 5 mg tablet 5 mg PO Q6H PRN (Reason: pain) 3 Days Qty: 12 0RF No Action cyclobenzaprine 10 mg tablet Patient Comments: TAKE 1 TABLET BY MOUTH THREE TIMES DAILY NEEDED FOR MUSCLE SPASM. omeprazole 40 mg capsule,delayed release(DR/EC) Patient Comments: TAKE 1 CAPSULE BY MOUTH ONCE DAILY metformin 500 mg tablet extended release 24 hr PO Patient Comments: TAKE 2 TABLETS BY MOUTH TWICE A DAY WITH MEALS sertraline 50 mg tablet Patient Comments: TAKE 1 AND 1/2 TABLETS BY MOUTH ONCE DAILY metoprolol tartrate 25 mg tablet Patient Comments: TAKE 1 TABLET BY MOUTH EVERY DAY insulin glargine [Lantus Solostar U-100 Insulin] 100 unit/mL (3 mL) insulin pen SUBCUT Patient Comments: INJECT 20 UNITS SUBCUTANEOUSLY DAILY AT BEDTIME. (DME) Dexcom G6 Sensor Device MISCELLANEOUS Patient Comments: USE TO CHECK BLOOD SUGARS FASTING, BEFORE AND AFTER MEALS, DX E11.9, INSULIN: YES (DME) Dexcom G6 Transmitter Device MISCELLANEOUS Patient Comments: APPLY NEW ONE EVERY 2 WEEKS: USE TO CHECK BLOOD SUGARS FASTING, BEFORE AND AFTER MEALS (DME) FreeStyle Hodan 14 Day Sensor Kit MISCELLANEOUS Patient Comments: USE DIRECTED ondansetron [ondansetron] 4 mg tablet,disintegrating 4 mg PO Q8H PRN PRN (Reason: Nausea) Qty: 10 0RF dicyclomine 10 mg capsule 20 mg PO TIDAC Qty: 20 0RF sucralfate [Carafate] 1 gram tablet 1 g PO TID Qty: 30 0RF Primary Care Provider: Amauri Valdes Referrals: Amauri Valdes MD [Primary Care Provider] - 3-5 Days Jayro Sands MD [Med Staff - Active Staff] - 3-5 Days Activity Restrictions/Additional Instructions: Use analgesics and antibiotic eardrops as directed. Follow-up with otolaryngology in 3 to 5 days. Return with fever, new or worsening symptoms. Print Language: Cymraes Disposition Disposition: Home, Self Care
== END 2024-12-04 21:45 | disposition home or self-care (01) ==
PROVIDERS: Emergency Provider Emergency Medicine; PCP Family Medicine; Referring Provider Emergency Medicine; Visit Provider Emergency Medicine
DX: H92.01 Otalgia, right ear (principal); E11.9 Type 2 diabetes mellitus without complications; Z79.4 Long term (current) use of insulin; Z90.710 Acquired absence of both cervix and uterus; H60.91 Unspecified otitis externa, right ear; Z79.84 Long term (current) use of oral hypoglycemic drugs
CPT/HCPCS: 99282